=== PATIENT | male | born 1995 | race African-American/Black ===

== ENCOUNTER 2024-08-01 11:40 | Emergency (ER) | payer MEDICAID ==
[~2024-08-01] VITALS: Ht 195.6 cm; Wt 135.5 kg
[2024-08-01 11:45] VITALS: O2SAT 97
[2024-08-01 14:21] VITALS: BP 132/80; PULSE 84; RESP 18; TEMP 37.1; O2SAT 97
== END 2024-08-01 14:22 | disposition home or self-care (01) ==
LOC: ER 11:40
DX: S93.402A Sprain of unspecified ligament of left ankle, initial encounter (principal); X58.XXXA Exposure to other specified factors, initial encounter; Y93.67 Activity, basketball; Y92.89 Other specified places as the place of occurrence of the external cause; Y99.8 Other external cause status
CPT/HCPCS: 73610; 99283; Z7610 ×2

== ENCOUNTER 2024-11-22 20:28 | Emergency (ER) | payer SELFPAY ==
[~2024-11-22] VITALS: Ht 195.6 cm; Wt 141.0 kg
[2024-11-22 20:36] VITALS: O2SAT 99
[2024-11-22] MEDS: KETOROLAC 30MG/ML VIAL IM ONE (21:16)
[2024-11-22] MEDS ORDERED: IBUP-2030 MT (22:10)
[2024-11-22] MEDS ORDERED: AMOX1TAB16 MT (22:10)
[2024-11-22] MEDS: HYDROCODONE/ACETAMINOPHEN 5/325MG TABLET PO ONE (22:33)
[2024-11-22 22:38] VITALS: BP 130/84; PULSE 57; RESP 18; TEMP 36.8; O2SAT 97
== END 2024-11-22 22:39 | disposition home or self-care (01) ==
LOC: ER 20:28
DX: K08.89 Other specified disorders of teeth and supporting structures (principal)
CPT/HCPCS: 96372; 99283; J1885; Z7610